=== PATIENT | male | born 2000 | race American Indian/Alaskan Native ===

== ENCOUNTER 2020-04-07 11:49 | Emergency (ER) | payer SELFPAY ==
[2020-04-07 12:04] VITALS: BP 115/71
--- NOTE | 2020-04-07 12:14 | Emergency Department Report ---
Chief Complaint: Urogenital-Male Stated Complaint: GROIN PAIN Time Seen by Provider: 04/07/20 12:06 - Exam Vital Signs: Vital Signs 04/07/20 12:01 Temperature 97.9 F Pulse Rate 61 Respiratory 20 Rate Blood Pressure 115/71 O2 Sat by Pulse 98 Oximetry Physical Exam: Patient alert and oriented x3 no acute distress nontoxic in appearance Respiratory without effort nonlabored Patient is ambulatory without difficulties MSE screening note: Focused history and physical exam performed. Due to findings the following was ordered: ED Disposition for MSE Disposition: MED SCREENING EXAM-LEFT Is pt being admited?: No Does the pt Need Aspirin: No Condition: Stable Additional Instructions: Follow-up at the health department or clinic on Thursday. Referrals: [facility] [Outside] - 3-5 Days [facility] [Outside] - 3-5 Days [facility] [Outside] - 3-5 Days [facility] [Other] - 3-5 Days
== END 2020-04-07 12:17 | disposition left against medical advice (07) ==
LOC: ED 11:49
DX: R10.9 Unspecified abdominal pain (principal); Z53.21 Procedure and treatment not carried out due to patient leaving prior to being seen by health care provider